=== PATIENT | male | born 1965 | race Caucasian/White ===

== ENCOUNTER → 2024-01-25 10:21 | Outpatient (REF) | payer BC, SELFPAY | LOC: HWRAD 10:21 | PROVIDERS: ATTENDING PHYSICIAN Internal Medicine | DX: R05.9 Cough, unspecified (principal) | CPT/HCPCS: 71046 ==

== ENCOUNTER → 2024-02-02 15:48 | Outpatient (REF) | payer BC, SELFPAY | LOC: RAD 15:48 | PROVIDERS: ATTENDING PHYSICIAN Internal Medicine | DX: R91.1 Solitary pulmonary nodule (principal) | CPT/HCPCS: 71250 ==

== ENCOUNTER → 2024-06-26 12:41 | Outpatient (REF) | payer BC, SELFPAY | LOC: RCS 12:41 | PROVIDERS: ATTENDING PHYSICIAN Internal Medicine Cardiovascular Disease | DX: I25.10 Atherosclerotic heart disease of native coronary artery without angina pectoris (principal); R55 Syncope and collapse | CPT/HCPCS: 93017; 93306 ==